=== PATIENT | female | born 1975 | race African-American/Black ===

== ENCOUNTER 2022-02-11 05:41 | Inpatient (IN) ==
[2022-02-04 11:43] LABS: Basophils % 0.3 % (0.0-0.8); Eosinophils # 0.1 10*3/uL (0.0-0.87); Eosinophils % 2.2 % (0.00-10.9); Hematocrit 34.9 VOL% (35.7-47.0); Hemoglobin 10.5 GM/DL (12.0-16.0); Immature Granulocytes % 0.3 %; Immature Granulocytes Absolute 0.02 #; Lymphocytes # 1.7 10*3/uL (1.4-4.0); Lymphocytes % 29.1 % (21.3-54.2); Mean Corpuscular HGB Conc 30.1 GM/DL (32-36); Mean Corpuscular Volume 82.9 FL (87-102); Mean Platelet Volume 10.7 FL (9.6-12.0); Monocytes # 0.4 10*3/uL (0.11-0.8); Monocytes % 6.7 % (1.7-12.7); Neutrophils % 61.4 % (38.7-73.9); Platelet Count 316 T/CUMM (130-400); Red Blood Count 4.21 MC/CUMM (3.8-5.5); Red Cell Distribution Width 23.1 % (9.3-17.3); White Blood Count 5.8 T/CUMM (4-12)
[2022-02-04 11:45] LABS: Bilirubin,Urine Negative (Negative); Blood, Urine Negative (Negative); Glucose,Urine (UA) Negative (Negative); Ketones,Urine Negative (Negative); Nitrite,Urine Negative (Negative); Protein,Urine Negative (Negative); Urine Appearance Cloudy (Clear); Urine Color Yellow (Yellow); Urine Specific Gravity >= 1.030 (1.001-1.035); Urine Urobilinogen 0.2 eU/dL (<2.0); Urine pH 5.5 (4.5-8.0)
[2022-02-04 11:52] LABS: INR 0.9; PT Patient Result 10.4 SECS (10.5-12.0); Partial Thromboplastin Time 25.6 SECS (23.7-32.9)
[2022-02-04 11:54] LABS: Mucus,Urine Few /LPF (Occasional); RBC,Urine 1 /HPF (0-4); Squamous Epithelial Cell,Urine Few /HPF (0-10)
[2022-02-04 12:10] LABS: Calcium 8.9 MG/DL (8.5-10.1); Osmolality,Calculated 278.4 MOS/KG (273-304); Potassium 4.1 MMOL/L (3.5-5.1)
[2022-02-04 12:17] LABS: Platelet Estimate Normal
[2022-02-04 12:18] LABS: Ovalocytes Few
[2022-02-04 12:19] LABS: Anisocytosis Slight
[2022-02-11] MEDS ORDERED: MIDAZOLAM 2 MG/2 ML VIAL ONE (06:30)
[2022-02-11] MEDS ORDERED: fentaNYL 100 MCG/2 ML VIAL ONE ×2 (06:30→07:29)
[2022-02-11] MEDS ORDERED: BUPIVACAINE MPF 0.25% 30 ML VIAL ONE (06:32)
[2022-02-11] MEDS ORDERED: DEXAMETHASONE 4 MG/1 ML VIAL ONE ×3 (06:33→09:16)
[2022-02-11] MEDS ORDERED: SCOPOLAMINE 1.5 MG PATCH TRANSDERM ONE (06:36)
[2022-02-11] MEDS ORDERED: SCOPOLAMINE 1.5 MG PATCH TRANSDERM STA (06:39)
[2022-02-11] MEDS ORDERED: CLINDAMYCIN INJ 900 MG/50 ML PREMIX IV ONE (06:48)
[2022-02-11] MEDS ORDERED: LACTATED RINGERS 1,000 ML IV SCH (07:00)
[2022-02-11] MEDS ORDERED: ACETAMINOPHEN INJ 1,000 MG/100 ML VIAL IV ONE (07:25)
[2022-02-11] MEDS ORDERED: propofoL 200 MG/20 ML VIAL IV ONE (07:26)
[2022-02-11] MEDS ORDERED: SEVOFLURANE 1 UNIT/15 MINUTE INH ONE ×8 (07:26→09:10)
[2022-02-11] MEDS ORDERED: LIDOCAINE 2% 5 ML VIAL ONE (07:26)
[2022-02-11] MEDS ORDERED: ONDANSETRON 4 MG/2 ML VIAL ONE (07:26)
[2022-02-11] MEDS ORDERED: ROCURONIUM 50 MG/5 ML VIAL IV ONE (07:26)
[2022-02-11] MEDS ORDERED: LEVOFLOXACIN INJ 500 MG/100 ML PREMIX IV ONE (07:42)
[2022-02-11] MEDS ORDERED: PHENYLEPHRINE 1 MG/10 ML SYRINGE IV ONE (08:19)
[2022-02-11] MEDS ORDERED: GLYCOPYRROLATE 0.4 MG/2 ML VIAL ONE (08:27)
[2022-02-11] MEDS ORDERED: NEOSTIGMINE 10 MG/10 ML VIAL ONE (08:27)
[2022-02-11 08:55] LABS: RBC,Urine 1 /HPF (0-4); Squamous Epithelial Cell,Urine Occasional /HPF (0-10)
[2022-02-11] MEDS ORDERED: FUROSEMIDE 20 MG/2 ML VIAL ONE ×2 (08:55→08:56)
[2022-02-11] MEDS ORDERED: METHYLENE BLUE 10 ML VIAL IV ONE (08:55)
[2022-02-11 08:56] LABS: Bilirubin,Urine Negative (Negative); Blood, Urine Small mg/dL (Negative); Glucose,Urine (UA) Negative (Negative); Ketones,Urine Negative (Negative); Nitrite,Urine Negative (Negative); Protein,Urine Negative (Negative); Urine Appearance Clear (Clear); Urine Color Straw (Yellow); Urine Specific Gravity 1.015 (1.001-1.035); Urine Urobilinogen 0.2 eU/dL (<2.0)
[2022-02-11] MEDS ORDERED: BISACODYL 10 MG SUPP RECTAL PRN (09:10)
[2022-02-11] MEDS ORDERED: MAGNESIUM HYDROXIDE SUSP 30 ML UDCUP PO PRN (09:10)
[2022-02-11] MEDS ORDERED: ONDANSETRON 4 MG/2 ML VIAL IV PRN ×2 (09:10→09:33)
[2022-02-11] MEDS ORDERED: ACETAMINOPHEN 325 MG TABLET PO PRN (09:10)
[2022-02-11] MEDS ORDERED: DOCUSATE SODIUM 100 MG CAPSULE PO PRN (09:10)
[2022-02-11] MEDS ORDERED: BENZOCAINE/MENTHOL LOZENGE 18/BOX PO PRN (09:10)
[2022-02-11] MEDS ORDERED: ROPIVACAINE 0.5% 30 ML VIAL ONE (09:16)
[2022-02-11] MEDS ORDERED: LIDOCAINE 1% 5 ML VIAL ONE (09:16)
[2022-02-11] MEDS ORDERED: HYDROmorphone 1 MG/1 ML SYRINGE ONE (09:30)
[2022-02-11] MEDS: HYDROmorphone 1 MG/1 ML SYRINGE IV PRN ×6 (09:33→14:46)
[2022-02-11] MEDS: LACTATED RINGERS 1,000 ML IV SCH ×2 (13:05→21:53)
[2022-02-11] MEDS: CLINDAMYCIN INJ 900 MG/50 ML PREMIX IV SCH ×2 (14:48→22:39)
[2022-02-11] MEDS: IBUPROFEN 800 MG TABLET PO PRN (18:41)
[2022-02-11] MEDS ORDERED: ZOLPIDEM 5 MG TABLET PO PRN (21:01)
[2022-02-11] MEDS: ZALEPLON 5 MG CAPSULE PO PRN ×2 (21:54→23:35)
[2022-02-12] MEDS: IBUPROFEN 800 MG TABLET PO PRN (03:44)
[2022-02-12 04:28] LABS: Basophils % 0.1 % (0.0-0.8); Hemoglobin 9.2 GM/DL (12.0-16.0); Immature Granulocytes % 0.5 %; Immature Granulocytes Absolute 0.08 #; Lymphocytes # 1.1 10*3/uL (1.4-4.0); Lymphocytes % 6.5 % (21.3-54.2); Mean Corpuscular HGB Conc 29.7 GM/DL (32-36); Mean Corpuscular Volume 84.5 FL (87-102); Mean Platelet Volume 10.1 FL (9.6-12.0); Monocytes # 1.3 10*3/uL (0.11-0.8); Neutrophils % 84.9 % (38.7-73.9); Platelet Count 324 T/CUMM (130-400); Red Blood Count 3.67 MC/CUMM (3.8-5.5); Red Cell Distribution Width 21.9 % (9.3-17.3); White Blood Count 16.5 T/CUMM (4-12)
[2022-02-12 07:17] VITALS: BP 111/64
== END 2022-02-12 14:48 | disposition home or self-care (01) | DRG 743 ==
LOC: N.OR 05:41 → N.SDSINP 05:45 → EDSTATUS 07:30 → N.OB 10:39
PROVIDERS: ADMIT Specialist; ATTEND Specialist